=== PATIENT | female | born 1970 | race Caucasian/White ===

== ENCOUNTER 2019-04-14 08:17 | Outpatient (CLI) | payer BC | END 2019-04-14 23:59 | disposition home or self-care (01) | LOC: STAR 08:17 | PROVIDERS: ATTEND Obstetrics & Gynecology | DX: Z01.818 Encounter for other preprocedural examination (principal); N95.0 Postmenopausal bleeding | CPT/HCPCS: 36415; 81001; 85025; 87086 ==

== ENCOUNTER 2019-04-23 08:01 | Day surgery (SDC) | payer BC ==
[~2019-04-23] VITALS: Ht 154.9 cm; Wt 60.3 kg
== END 2019-04-23 13:15 | disposition home or self-care (01) ==
LOC: OUT 08:01
PROVIDERS: ATTEND Obstetrics & Gynecology
DX: N95.0 Postmenopausal bleeding (principal); Z72.89 Other problems related to lifestyle; Z80.0 Family history of malignant neoplasm of digestive organs; Z80.41 Family history of malignant neoplasm of ovary; Z82.49 Family history of ischemic heart disease and other diseases of the circulatory system
CPT/HCPCS: 58558; 81025; 88305; J0690; J1100; J1885; J2250; J2405; J2704; J3010; J7120

== ENCOUNTER → 2020-07-28 | Outpatient (CLI) | payer BC ==
[~2020-07-28] MED LIST: No meds per pt.
== END | disposition home or self-care (01) ==
LOC: CFH 14:50
PROVIDERS: ATTEND Obstetrics & Gynecology
DX: Z12.31 Encounter for screening mammogram for malignant neoplasm of breast (principal)
CPT/HCPCS: 77063; 77067